=== PATIENT | female | born 1960 | race Caucasian/White ===

== ENCOUNTER 2023-02-12 09:06 | Outpatient (CLI) | payer BC, SELFPAY ==
--- NOTE | 2023-02-12 10:43 | W.ANESCHARGE ---
Anesthesia Charges Start Date/Time Anesthesia Start Date: 02/12/23 Anesthesia Start Time: 10:20 Stop Date/Time Anesthesia Stop Date: 02/12/23 Anesthesia Stop Time: 10:40
--- NOTE | 2023-02-12 10:43 | W.ANESCHARGE ---
Anesthesia Charges Start Date/Time Anesthesia Start Date: 02/12/23 Anesthesia Start Time: 10:20 Stop Date/Time Anesthesia Stop Date: 02/12/23 Anesthesia Stop Time: 10:40
== END 2023-02-12 09:07 | disposition home or self-care (01) ==
PROVIDERS: PCP Family Medicine; Visit Provider Internal Medicine Gastroenterology
DX: Z12.11 Encounter for screening for malignant neoplasm of colon (principal); K57.30 Diverticulosis of large intestine without perforation or abscess without bleeding
CPT/HCPCS: 00812; 45378; J2704